=== PATIENT | male | born 1970 | race Caucasian/White ===

== ENCOUNTER → 2024-09-22 16:42 | Outpatient (REF) | payer BC, SELFPAY | LOC: MRI 16:42 | PROVIDERS: ATTENDING PHYSICIAN Physical Medicine & Rehabilitation Sports Medicine | DX: R93.7 Abnormal findings on diagnostic imaging of other parts of musculoskeletal system (principal); M25.511 Pain in right shoulder; S05.40XA Penetrating wound of orbit with or without foreign body, unspecified eye, initial encounter | CPT/HCPCS: 70030; 73221 ==

== ENCOUNTER → 2024-11-22 06:33 | Outpatient (REF) | payer BC, SELFPAY | LOC: MRI 06:33 | PROVIDERS: ATTENDING PHYSICIAN Physical Medicine & Rehabilitation Sports Medicine | DX: M54.17 Radiculopathy, lumbosacral region (principal); R29.898 Other symptoms and signs involving the musculoskeletal system | CPT/HCPCS: 72148 ==

== ENCOUNTER 2025-04-07 06:04 | Day surgery (SDC) | payer BC, SELFPAY ==
[2025-03-23 09:01] LABS: Hematocrit 45.6 % (39.0-52.0); Hemoglobin 15.3 g/dL (13.0-18.0); Mean Corp Hgb Conc. 33.6 g/dL (33.0-37.0); Mean Corpuscular Volume 89.9 fL (80.0-94.0); Platelet Count 250 10^3/uL (130-400); Red Cell Dist. Width 13.6 % (11.5-14.5)
[2025-03-23 09:43] LABS: ALT (SGPT) 44 U/L (0-50); AST (SGOT) 32 U/L (17-59); Albumin 4.2 g/dl (3.5-5.0); Alkaline Phosphatase 96 U/L (38-126); Blood Urea Nitrogen 8 mg/dl (9-20); Calcium 9.2 mg/dl (8.4-10.2); Carbon Dioxide 28 mmol/L (22-30); Chloride 108 mmol/L (98-107); Glucose 97 mg/dl (70-99); Potassium 4.9 mmol/L (3.5-5.1); Sodium 142 mmol/L (135-145); Total Protein 6.7 g/dl (6.3-8.2); eGFR > 60.00
[2025-03-23 14:03] VITALS: BMI 25.0
--- NOTE | 2025-03-23 15:48 | PTCARENOTE ---
Abnormal EKG on 03/23/25. Dr. Edwards aware. No intervention needed.
[2025-04-01 08:08] VITALS: BMI 25.0
[2025-04-07] VITALS (9 sets, daily range): BP systolic 107–120; BP diastolic 73–90; BMI 25.0
[2025-04-07] MEDS: LYRICA 150 MG PO (08:28)
[2025-04-07] MEDS: CELEBREX 200 MG PO (08:28)
[2025-04-07] MEDS: TYLENOL 1000 MG PO (08:29)
[2025-04-07] MEDS: METHOCARBAMOL 1500 MG PO (08:29)
[2025-04-07] MEDS: NORMOSOL-R/PLASMALYTE-A 1000 IV (08:40)
== END 2025-04-07 13:19 | disposition home or self-care (01) ==
LOC: SDS 06:04
PROVIDERS: ATTENDING PHYSICIAN Orthopaedic Surgery Orthopaedic Surgery of the Spine
DX: M48.062 Spinal stenosis, lumbar region with neurogenic claudication (principal); M71.38 Other bursal cyst, other site; G96.191 Perineural cyst
CPT/HCPCS: 63047; 36415; 72020; 80053; 85027; 87070; 88304; 93005